=== PATIENT | female | born 1975 | race Caucasian/White ===

== ENCOUNTER → 2017-07-21 | Outpatient (CLI) | payer BC | END | disposition home or self-care (01) | LOC: KCIC MAMMO 13:16 | DX: Z12.31 Encounter for screening mammogram for malignant neoplasm of breast (principal) | CPT/HCPCS: 77067 ==

== ENCOUNTER → 2018-08-12 | Outpatient (CLI) | payer BC ==
--- NOTE | 2018-08-12 13:08 | KCIC ---
EXAM: Bilateral screening mammogram. HISTORY: 42-year-old female presents for screening mammography. TECHNIQUE: Full-field digital craniocaudal and mediolateral oblique views of both breasts are obtained for evaluation. Computer aided detection with [employer] software version 9.3 was applied. COMPARISON: 07/21/2017 BREAST PARENCHYMAL DENSITY: Level C - Heterogeneously dense. FINDINGS: There is no new suspicious mass, microcalcification or region of architectural distortion. IMPRESSION: BI-RADS Category 2: Benign finding(s). RECOMMENDATION: Annual mammography is recommended. If your mammogram demonstrates that you have dense breast tissue, which could hide abnormalities, and if you have other risk factors for breast cancer that have been identified, you might benefit from supplemental screening tests that may be suggested by your ordering physician. Dense breast tissue, in and of itself, is a relatively common condition. This information is not provided to cause undue concern, but rather to raise your awareness and to promote discussion with your physician regarding the presence of other risk factors, in addition to dense breast tissue. A report of your mammography results will be sent to you and your physician. You should contact your physician if you have any questions or concerns regarding this report. Mammography is a sensitive method for finding small breast cancers, but it does not detect them all and is not a substitute for careful clinical examination. A negative mammogram does not negate a clinically suspicious finding and should not result in delay in biopsying a clinically suspicious abnormality. PQRS compliance statement - Patient information was entered into a reminder system with a target due date for the next mammogram. "Our facility is accredited by the [employer]ammography [employer]." Electronically signed by: Rajwinder Baeza MD (08/12/2018 1:05 PM) [id number]
== END | disposition home or self-care (01) ==
LOC: KCIC MAMMO 12:11
PROVIDERS: ATTEND Obstetrics & Gynecology
DX: Z12.31 Encounter for screening mammogram for malignant neoplasm of breast (principal); R92.8 Other abnormal and inconclusive findings on diagnostic imaging of breast
CPT/HCPCS: 77067

== ENCOUNTER → 2019-12-02 | Outpatient (CLI) | payer BC, OTHER ==
--- NOTE | 2019-12-02 14:08 | KCIC ---
Bilateral digital screening mammograms: Reason for examination: Routine screening. Comparison is made to previous studies dated 08/12/2018 and 07/21/2017. Interpretation was made with the benefit of CAD. The skin and nipples show no abnormalities. No abnormal axillary lymph nodes are seen. The breast parenchyma is heterogeneously dense. (Breast density: Category C.) There appears to be a small 7 mm nodular parenchymal density in the upper inner quadrant of the right breast approximately 6 cm from the nipple at approximately the 2:00 B position. Further evaluation with ultrasound is recommended. There are no other dominant masses, suspicious calcifications or architectural distortion. Impression: Small 7 mm nodule suggested in the upper inner quadrant at approximately the 2:00 B position of the right breast. Recommend further evaluation with ultrasound. Your patient's mammogram demonstrates that she has dense breast tissue (breast density category C or D), which could hide abnormalities, and if she has other risk factors for breast cancer that have been identified, she might benefit from supplemental screening tests that may be suggested by you as her ordering physician. Dense breast tissue, in and of itself, is a relatively common condition. Therefore, this information is not provided to cause undue concern, but rather to raise your awareness and to promote discussion with your patient regarding the presence of other risk factors, in addition to dense breast tissue. Your patient's mammography results will be sent to her. BI-RAD Category 0: Incomplete. Needs additional imaging evaluation. "Our facility is accredited by the [employer]ammography [employer]." This patient's information has been entered into a reminder system for the patient to be notified with the results of her examination and a target date for the next mammogram. Electronically signed by: Maude Deluna MD (12/02/2019 2:05 PM) [id number]
== END ==
LOC: KCIC MAMMO 08:22
PROVIDERS: ATTEND Obstetrics & Gynecology
DX: Z12.31 Encounter for screening mammogram for malignant neoplasm of breast (principal); N63.12 Unspecified lump in the right breast, upper inner quadrant
CPT/HCPCS: 77067

== ENCOUNTER → 2020-01-13 | Outpatient (CLI) | payer OTHER ==
--- NOTE | 2020-01-13 15:38 | RAD ---
Examination: Limited right breast ultrasound. INDICATION: 44-year-old woman recalled from screening for nodule in the upper inner right breast. COMPARISON: 07/21/2017 and 12/02/2019 screening mammograms. TECHNIQUE: Targeted ultrasound of the upper inner quadrant right breast was performed, including sonographic survey of the right axilla. FINDINGS: Sonographic survey of the upper inner quadrant right breast reveal dense fibroglandular tissue with no discrete sonographic abnormality. No definite sonographic correlate to the questioned area of nodular asymmetry in the upper inner right breast. IMPRESSION: Probably benign mammographic findings with no sonographic correlate. Recommend six-month follow-up right digital diagnostic mammogram with possible ultrasound. BI-RADS Category 3 Probably benign findings
== END ==
LOC: US 13:48
PROVIDERS: ATTEND Obstetrics & Gynecology
DX: R92.2 Inconclusive mammogram (principal)
CPT/HCPCS: 76641

== ENCOUNTER → 2020-10-09 | Outpatient (CLI) | payer OTHER ==
--- NOTE | 2020-10-09 10:30 | KCIC ---
Right breast diagnostic digital mammograms: Reason for examination: Follow-up nodule. Comparison is made to previous studies dated 12/02/2019 and 08/12/2018. Interpretation was made with the benefit of CAD. The skin and nipple show no abnormalities. No abnormal axillary lymph nodes are seen. The breast pare nchyma is heterogeneously dense. (Breast density: Category C.) There has been interval regression of the nodule at the 2:00 B position. There are no new dominant masses, suspicious calcifications or arc hitectural distortion. Impression: Interval improvement in the nodule seen previously at the 2:00 position. Ultrasound to follow. Your patient's mammogram demonstrates that she has dense breast tissue (breast density category C or D), which could hide abnormalities, and if she has other risk factors for breast cancer that have bee n identified, she might benefit from supplemental screening tests that may be suggested by you as her ordering physician. Dense breast tissue, in and of itself, is a relatively common condition. Therefo re, this information is not provided to cause undue concern, but rather to raise your awareness and t o promote discussion with your patient regarding the presence of other risk factors, in addition to d ense breast tissue. Your patient's mammography results will be sent to her. BI-RAD Category 0: Incomplete. Needs additional imaging evaluation. Right breast ultrasound: Comparison is made to previous study dated 01/13/2020. Ultrasound examination of the right breast and axilla was performed. There is some dense fibroglandular tissue. There has been progression of the cystic lesion at the 2:0 0 position now measuring approximately 4.3 mm in size. There are no new cystic or solid nodules seen. Lymph nodes in the right axilla are mildly prominent which is probably related to recent Covid vacci [place]. IMPRESSION: Improvement in the lesion at the 2:00 position which probably represents a regressing cyst. Mildly prominent lymph nodes in the axilla which probably reflects some reactive changes from recent Covid vaccination. Recommend clinical correlation. BI-RADS Category 2: Benign. "Our facility is accredited by the [employer] Mammography [employer]." This patient's information has been entered into a reminder system for the patient to be notified wit h the results of her examination and a target date for the next mammogram. Electronically signed by: Maude Deluna MD (10/09/2020 10:28 AM) [id number]
== END ==
LOC: KCIC MAMMO 08:39
PROVIDERS: ATTEND Obstetrics & Gynecology
DX: R92.8 Other abnormal and inconclusive findings on diagnostic imaging of breast (principal); N63.12 Unspecified lump in the right breast, upper inner quadrant
CPT/HCPCS: 76641; 77065